=== PATIENT | male | born 1995 | race Caucasian/White ===

== ENCOUNTER 2021-11-04 00:06 | Emergency (ER) | payer BC, MEDICAID ==
--- NOTE | 2021-11-04 00:31 | ERPHSYRPT ---
- History of Present Illness Time Seen by Provider: 11/04/21 00:31 Source: patient Exam Limitations: no limitations Patient Subjective Stated Complaint: Patient with c/o cough, sinus congestion, SOB since Wednesday. Symptoms became worse tonight. Denies chest pain or pain any where at this time. Triage Nursing Assessment: Patient ambulated back to ED without difficulties. Patient alert and oriented and answering questions appropriately. No SOB noted. Lungs clear but right lung is more diminished than the left lung. Occ. non- productive cough noted during assessment. Nasal congestion present. Physician History: This is a 26-year-old white male patient who has no known drug allergies and takes no medications chronically and presents with 3 to 4-day history of cough and congestion and sore throat. He has no known exposures to anyone with viral illnesses. He has no significant chest pain. He has no abdominal pain. He has no nausea vomiting or diarrhea symptoms. Timing/Duration: day(s) (3-4), other (Not improving) Cough Quality/Degree: mild (Moderate), dry cough Possible Cause: no prior episodes Modifying Factors: Improves With: coughing Associated Symptoms: cough, nasal congestion, sore throat Allergies/Adverse Reactions: No Known Drug Allergies Allergy (Unverified 11/04/21 00:14) Hx Tetanus, Diphtheria Vaccination/Date Given: Yes Hx Influenza Vaccination/Date Given: No Hx Pneumococcal Vaccination/Date Given: No Immunizations Up to Date: Yes Travel Risk - International Travel Have you traveled outside of the country in past 3 weeks: No - Coronavirus Screening Are you exhibiting any of the following symptoms?: Yes Symptoms: Cough: New Onset, Shortness of Breath Close contact with a COVID-19 positive Pt in past 14-21 Days: No - Vaccine Status Have you recieved a Covid-19 vaccination: No - Review of Systems Constitutional: No Symptoms Eyes: No Symptoms Ears, Nose, & Throat: Nose Congestion, Throat Pain Respiratory: Cough Cardiac: No Symptoms Abdominal/Gastrointestinal: No Symptoms Genitourinary Symptoms: No Symptoms Musculoskeletal: Arthralgias, Myalgias Skin: No Symptoms Neurological: No Symptoms Psychological: No Symptoms Endocrine: No Symptoms Hematologic/Lymphatic: No Symptoms Immunological/Allergic: No Symptoms All Other Systems: Reviewed and Negative - Past Medical History Pertinent Past Medical History: Yes Respiratory History: Asthma Other Medical History: childhood asthma, grew out of it - Past Surgical History Past Surgical History: Yes Other Surgical History: tubes in ears - Social History Smoking Status: Never smoker Exposure to second hand smoke: No Drug Use: none Patient Lives Alone: No - Nursing Vital Signs Nursing Vital Signs: Initial Vital Signs Temperature 97.4 F 11/04/21 00:15 Pulse Rate 73 11/04/21 00:15 Respiratory Rate 20 11/04/21 00:15 Blood Pressure 148/94 11/04/21 00:15 O2 Sat by Pulse Oximetry 98 11/04/21 00:15 Pain Scale Pain Intensity 0 - Physical Exam General Appearance: no apparent distress, alert, anxiety, thin Eye Exam: PERRL/EOMI, eyes nml inspection Ears, Nose, Throat Exam: normal ENT inspection, moist mucous membranes Neck Exam: normal inspection, non-tender, supple, full range of motion Respiratory Exam: normal breath sounds, lungs clear, airway intact, No chest tenderness, No respiratory distress Cardiovascular Exam: regular rate/rhythm, normal heart sounds, normal peripheral pulses Gastrointestinal/Abdomen Exam: soft, normal bowel sounds, No tenderness Rectal Exam: not done Back Exam: normal inspection, normal range of motion, No CVA tenderness, No vertebral tenderness Extremity Exam: normal inspection, normal range of motion, pelvis stable Neurologic Exam: alert, oriented x 3, cooperative, leadership program intern II-XII nml as tested, normal mood/affect, nml cerebellar function, nml station & gait, sensation nml Skin Exam: normal color, warm, dry Lymphatic Exam: No adenopathy SpO2 Interpretation: normal SpO2: 98 O2 Delivery: Room Air - Course Nursing assessment & vital signs reviewed: Yes Ordered Tests: Active Orders 24 hr Category Date Time Status CHEST 1 VIEW (PORTABLE) Stat Exams 11/04/21 00:31 Ordered INFLUENZA A+B JOSÉ MIGUEL Stat Lab 11/04/21 00:35 Received Medication Summary Generic Name Dose Route Start Last Admin Trade Name Freq PRN Reason Stop Dose Admin Methylprednisolone Sodium 0 mg 11/04/21 01:23 Succinate 125 mg/ Sterile IM 11/04/21 01:24 Water 2 ml STAT ONE - Progress Progress: improved Air Movement: good Progress Note: 11/04/21 01:26 Chest x-ray shows no acute cardiopulmonary process. Blood Culture(s) Obtained: No Antibiotics given: No Counseled pt/family regarding: lab results, diagnosis, need for follow-up, rad results - Departure Departure Disposition: Home Clinical Impression: Viral illness Condition: Stable Critical Care Time: No Referrals: YONATAN SALEH NP [NON-STAFF PHY W/O PRIVILEGES] - Follow up/PCP as directed Additional Instructions: Drink plenty fluids. Take your medication as prescribed. Quarantine yourself until the results of your COVID-19 test returned. Forms: Work/School Release Form Prescriptions: Hydrocodone/Acetaminophen [Hydrocodone-Acetamn 7.5-325/15] 10 ml PO Q8H PRN PRN #120 ml MDD 30 ml PRN Reason: Cough Prednisone 10 mg [Deltasone 10 mg] 10 mg PO TID #12 tablet
[2021-11-04] MEDS ORDERED: solu-MEDROL 125 MG, Sterile H2O 10 ml 2 ML IM ONE ×2 (01:23)
[2021-11-04 01:27] LABS: INFLUENZA A NEGATIVE (NEGATIVE); INFLUENZA B NEGATIVE (NEGATIVE)
[2021-11-04] MEDS ORDERED: HYDROCODONE-ACETAMIN 2.5-108/5 ML SOLUTION PO STA (01:30)
[2021-11-04] MEDS ORDERED: solu-MEDROL ONE (01:40)
[2021-11-04] MEDS ORDERED: HYDROCODONE-ACETAMIN 2.5-108/5 ML SOLUTION ONE (01:40)
[2021-11-04 02:05] VITALS: BP 140/88; PULSE 77; O2SAT 99
--- NOTE | 2021-11-04 08:50 | XRAY ---
Indication: Cough. Comparison: July 20, 2015. Portable chest again demonstrates normal heart, lungs, and bony thorax.
== END 2021-11-04 02:00 | disposition home or self-care (01) ==
LOC: ED 00:06
DX: B34.9 Viral infection, unspecified (principal); R05.9 Cough, unspecified; R09.81 Nasal congestion; J02.9 Acute pharyngitis, unspecified; Z79.891 Long term (current) use of opiate analgesic; Z79.52 Long term (current) use of systemic steroids
CPT/HCPCS: 71045; 87400; 87651; 96372; 99284; J2930; A9270-GY